=== PATIENT | female | born 1990 | race Caucasian/White ===

== ENCOUNTER 2018-10-20 13:10 | Emergency (ER) | payer OTHER ==
--- OUTSIDE RECORDS SUMMARY | 2018-10-20 13:13 | XMS REPORT | Clinical Summary ---
:1990 Author Organization [facility] Address [address] [place] [address] Care Team Providers Name Role Phone Jeyson Red MD Primary Care Provider Allergies Active Allergy Reactions Severity Noted Date Comments Tramadol Other (See Comments) 05/21/2017 Medications Medication Sig Dispensed Refills Start Date End Date Status ondansetron ODT Take 1 tablet 30 tablet 1 10/01/2018 Active (ZOFRAN-ODT) 8 MG (8 mg total) 8 disintegrating by mouth every tablet 8 (eight) hours as needed for nausea or vomiting for up to 30 days. norgestimate-ethinyl Take 1 tablet 84 tablet 3 05/26/2017 Discontinued estradiol (ORTHO by mouth 8 TRI-CYCLEN LO, 28,) daily. 0.18/0.215/0.25 mg-25 mcg per tablet Active Problems Problem Noted Date ASCUS with positive high risk HPV cervical 10/16/2018 Overview: Repeat Pap Spontaneous rupture of tendon of right foot 08/02/2016 Ganglion cyst of right foot 08/02/2016 Encounters Date Type Specialty Care Team Description 10/20/2018 Telephone Hue Francois MD 10/06/2018 Telephone Hue Francois MD 10/02/2018 Ancillary Procedure Hue Francois test Riaz Neumann MD positive 10/01/2018 Office Visit Hue Francois test Riaz Neumann MD positive (Primary Dx) 10/01/2018 Orders Only Hue Francois MD 09/21/2018 Telephone Hue Francois MD after 10/19/2017 Family History Medical History Relation Name Comments No Known Problems Father No Known Problems Mother Relation Name Status Comments Father Mother Social History Tobacco Use Types Packs/Day Years Used Date Never Smoker Alcohol Use Drinks/Week oz/Week Comments Yes 1-2 Standard drinks or equivalent 0.6 - 1.2 Sex Assigned at Date Recorded Not on file Job Start Date Occupation Industry Not on file Not on file Not on file Travel History Travel Start Travel End No recent travel history available. Last Filed Vital Signs Vital Sign Reading Time Taken Blood Pressure 116/72 10/01/2018 3:07 PM BAGGAGE CHECKER Pulse 69 10/01/2018 3:07 PM BAGGAGE CHECKER Temperature - - Respiratory Rate - - Oxygen Saturation - - Inhaled Oxygen Concentration - - Weight 61.2 kg (135 lb) 10/01/2018 3:07 PM BAGGAGE CHECKER Height 167.6 cm (5' 6") 10/01/2018 3:07 PM BAGGAGE CHECKER Body Mass Index 21.79 10/01/2018 3:07 PM BAGGAGE CHECKER Plan of Treatment Date Type Specialty Care Team Description 10/29/2018 Routine Obstetrics and Hue Flores MD Gynecology [address] [facility] [address] [place] [id number] Health Maintenance Due Date Last Done Comments CERVICAL CANCER SCREENING 2012 INFLUENZA VACCINE 06/17/2018 HEPATITIS B VACCINES Aged Out No longer eligible based on patient's age to complete this topic IPV VACCINES Aged Out No longer eligible based on patient's age to complete this topic MENINGOCOCCAL VACCINE Aged Out No longer eligible based on patient's age to complete this topic Procedures Procedure Name Priority Date/Time Associated Comments Diagnosis US Routine 10/02/2018 8:44 test Results for this TRANSVAGINAL AM BAGGAGE CHECKER positive procedure are in the results section. MICROSCOPIC EXAMINATION Routine 10/01/2018 4:16 Results for this PM BAGGAGE CHECKER procedure are in the results section. URINALYSIS, COMPLETE, Routine 10/01/2018 4:16 Results for this WITH REFLEX TO CULTURE PM BAGGAGE CHECKER procedure are in the results section. OBSTETRIC PANEL Routine 10/01/2018 4:16 Results for this PM BAGGAGE CHECKER procedure are in the results section. GYNECOLOGIC PAP TEST Routine 10/01/2018 3:31 test Results for this (IMAGE-GUIDED), PM BAGGAGE CHECKER positive procedure are in LIQUID-BASED the results PREPARATION AND CHL section. HUMAN PAPILLOMAVIRUS Routine 10/01/2018 3:31 Results for this (HPV) (APTIMA) PM BAGGAGE CHECKER procedure are in the results section. after 10/19/2017 Results US Transvaginal (10/02/2018 8:44 AM BAGGAGE CHECKER) Narrative Performed At [facility]-- GA:[id number]:05/24/2019 RADIANT AUA--GA:[id number]:05/25/2019 CRL:4.22mmCardiac Rate:102 bpmNote lo FHR follow up. NT:none Nasal Bone seen:Not Performed Adnexal Structure:Lt follicle 14 mm x 12mm x 11mm. JM Performing Organization Address City/State/Zipcode Phone Number [facility] [address] [place] [address] Obstetric panel (10/01/2018 4:16 PM BAGGAGE CHECKER) Hepatitis B surface Ag Negative Negative [facility] RPR Non Reactive Non Reactive [facility] Rubella IgG antibody <0.90 (L) Immune >0.99 index [facility] Comment: Non-immune <0.90 Equivocal 0.90 - 0.99 Immune >0.99 ABO grouping A [facility] Rh type Positive [facility] Comment: Please note: Prior records for this patient's ABO / Rh type are not available for additional verification. Antibody screen Negative Negative [facility] HIV AG/AB 4th gen Non Reactive Non Reactive [facility] WBC 11.0 (H) 3.4 - 10.8 x10E3/uL [facility] RBC 4.48 3.77 - 5.28 x10E6/uL [facility] HGB 13.9 11.1 - 15.9 g/dL [facility] HCT 40.8 34.0 - 46.6 % [facility] MCV 91 79 - 97 fL [facility] MCH 31.0 26.6 - 33.0 pg [facility] MCHC 34.1 31.5 - 35.7 g/dL [facility] RDW 12.9 12.3 - 15.4 % [facility] Platelet count 266 150 - 379 x10E3/uL [facility] Neutrophils 69 Not Estab. % [facility] Lymphocytes 23 Not Estab. % [facility] Monocytes 7 Not Estab. % [facility] Eosinophils 1 Not Estab. % [facility] Basophils 0 Not Estab. % [facility] Neutrophils, absolute 7.5 (H) 1.4 - 7.0 x10E3/uL [facility] Lymphocytes, absolute 2.6 0.7 - 3.1 x10E3/uL [facility] Monocytes, absolute 0.8 0.1 - 0.9 x10E3/uL [facility] Eosinophils, absolute 0.1 0.0 - 0.4 x10E3/uL [facility] Basophils, absolute 0.0 0.0 - 0.2 x10E3/uL [facility] Immature granulocytes 0 Not Estab. % [facility] Immature grans (abs) 0.0 0.0 - 0.1 x10E3/uL [facility] Narrative Performed At Performed at:[address] [place], [place] [id number] Glassware Maker: Wilmer Falk MD, Phone:[phone] Performing Organization Address [facility] Phone Number [facility] URINALYSIS, COMPLETE, WITH REFLEX TO CULTURE (10/01/2018 4:16 PM BAGGAGE CHECKER) Specific gravity, urine 1.010 1.005 - 1.030 [facility] pH, urine 6.5 5.0 - 7.5 [facility] Color, UA Yellow Yellow [facility] Appearance Clear Clear [facility] WBC esterase, urine Negative Negative [facility] Protein, UA Negative Negative/Trace [facility] Glucose, urine Negative Negative [facility] Ketones, UA Negative Negative [facility] Occult blood, urine Negative Negative [facility] Bilirubin, UA Negative Negative [facility] Urobilinogen, UA 0.2 0.2 - 1.0 mg/dL [facility] Nitrite, UA Negative Negative [facility] Microscopic examination CommentComment: Microscopic [facility] follows if indicated. Microscopic examination See below:Comment: Microscopic [facility] was indicated and was performed. Urinalysis reflex CommentComment: This specimen [facility] will not reflex to a Urine Culture. Narrative Performed At Performed at:[address] [place], [place] [id number] Glassware Maker: Wilmer Falk MD, Phone:[phone] Performing Organization Address [facility]/Zipcode Phone Number [facility] Microscopic Examination (10/01/2018 4:16 PM BAGGAGE CHECKER) WBC, UA None seen 0 - 5 /hpf [facility] RBC, UA 0-2 0 - 2 /hpf [facility] Epithelial cells (non renal) 0-10 0 - 10 /hpf [facility] Mucus, UA Present Not Estab. [facility] Bacteria, UA Few None seen/Few [facility] Narrative Performed At Performed at:01 - [facility] [place] [address] [place], [id number] Glassware Maker: Wilmer Falk MD, Phone:[phone] Performing Organization Address City/[facility] Phone Number [facility] Human Papillomavirus (HPV) (Aptima) (10/01/2018 3:31 PM BAGGAGE CHECKER) HPV Aptima Positive (A) Negative [facility] 02 Comment: This test detects fourteen high-risk HPV types (16/18/31/33/35/39/45/ 51/52/56/58/59/66/68) without differentiation. Narrative Performed At Performed at: - [facility] [address] [facility], [id number] Glassware Maker: Ciera Lopez MD, Phone:[phone] Performing Organization Address City/[facility] 02 Gynecologic Pap Test (Image-guided), Liquid-based Preparation and Chlamydia/ Gonococcus, ODETTE With Reflex to Human Papillomavirus (HPV) (Aptima) When ASC-U (10/01/2018 3:31 PM BAGGAGE CHECKER) Diagnosis Comment (A) [facility] Comment: EPITHELIAL CELL ABNORMALITY. ATYPICAL SQUAMOUS CELLS OF UNDETERMINED SIGNIFICANCE. Specimen adequacy Comment [facility] Comment: Satisfactory for evaluation.Endocervical and/or squamous metaplastic cells (endocervical component) are present. Clinician provided ICD10 CommentComment: Z32.01 [facility] Performed by: CommentComment: Jd Gabriel, [facility] Voting Machine Repairer (ASCP) Electronically signed by: CommentComment: Misty Flores [facility] Linares MD, Pathologist Comment . [facility] Pathologist provided ICD10 CommentComment: R87.610 [facility] Note: Comment [facility] Comment: The Pap smear is a screening test designed to aid in the detection of premalignant and malignant conditions of the uterine cervix.It is not a diagnostic procedure and should not be used as the sole means of detecting cervical cancer.Both false-positive and false-negative reports do occur. Test methodology CANCELED [facility] Comment: The Thin Prep(R) Loan Supervisor was unable to read this specimen.Therefore a manual review was performed. Result canceled by the ancillary. Reflex CommentComment: See below for [facility] HPV testing results. Chlamydia, nucleic acid amp Negative Negative [facility] 02 Gonococcus by nucleic acid amp Negative Negative [facility] 02 Specimen Swab Narrative Performed At Performed at: - [facility] [address] [place], [id number] Glassware Maker: Ciera Lopez MD, Phone:[phone] Performed at: - [facility] [address] [place], [id number] Glassware Maker: Ciera Lopez MD, Phone:[phone] Specimen Comment: No. of containers..01 ThinPrep Vial Performing Organization Address City/State/Zipcode Phone Number [facility] 02 after 10/19/2017 Insurance Payer Benefit Plan / Group Subscriber ID Type Phone Address HUMANA HUMANA HMO/POS/EPO/OPEN ACCESS xxxxxxxxx HMO Advance Directives Patient has advance care planning documents on file. For more information, please contact:Par[address] [address]
[2018-10-20] MEDS ORDERED: METOCLOPRAMIDE 10 MG/2mL INJ ONE (15:05)
[2018-10-20] MEDS ORDERED: NA CHLORIDE 0.9% 1,000 ML ONE (15:06)
[2018-10-20] MEDS ORDERED: DIPHENHYDRAMINE 50 MG/ML VIAL ONE (15:06)
[2018-10-20 15:09] LABS: Absolute Lymphocytes (CBC) 2.1 K/uL (0.7-4.9); Absolute Monocytes 0.7 K/uL (0.1-1.3); Basophils % 0.4 % (0-1.3); Eosinophils % 0.3 % (0-4.4); Hematocrit 43.6 % (36.0-45.0); Lymphocytes % 14.8 % (15.3-44.8); MCH 31.2 pg (27.0-35.0); MCV 90.4 fL (80-100); MPV 9.3 fL (7.6-11.3); Monocytes % 4.9 % (3.3-12.3); RBC Red Blood Cell Count 4.82 M/uL (3.86-4.86)
[2018-10-20 15:17] LABS: BUN Blood Urea Nitrogen 5 mg/dL (7-18); Bicarbonate 27 mmol/L (21-32); Glucose Level 81 mg/dL (74-106); Potassium 4.1 mmol/L (3.5-5.1); Sodium Level 138 mmol/L (136-145)
[2018-10-20 15:55] LABS: Urine Blood NEGATIVE (NEG); Urine Glucose NEGATIVE (NEG); Urine Protein NEGATIVE (NEG); Urine pH 8.5 (5.0-7.0)
[2018-10-20 16:39] LABS: Platelet Estimate ADEQ; Urine White Blood Cell Casts OK
[2018-10-20 16:40] LABS: Blood Morphology Comment NOT SEEN (NOT SEEN)
--- NOTE | 2018-10-20 16:52 | EDPHYS ---
Physician Documentation [facility] Name: Joanie Ochoa Age: 28 yrs Sex: Female : 1990 Arrival Date: 10/20/2018 Time: 13:16 Bed 19 Private MD: out of town, doctor ED Physician Howard Rodriguez HPI: 10/20 17:01 This 28 yrs old Female presents to ER via Ambulatory with complaints of 9 wks jr8 , Dizziness, Headache. 17:01 Patient stated that she is 9 weeks . Has been having dizziness today along with jr8 headache. Has also been constipated due to and zofran use. Denies abdominal pain, vaginal bleeding, or discharge. Severity of symptoms: At their worst the symptoms were mild in the emergency department the symptoms are unchanged. The patient has not experienced similar symptoms in the past. The patient has not recently seen a physician. DISPATCHER MAINTENANCE: 17:31 Verified bp Historical: - Allergies: 13:29 tramadol; sv - Home Meds: 13:29 None [Active]; sv - PMHx: 13:29 None; sv - PSHx: 13:29 right great toe tendon repair; sv - Immunization history:: Flu vaccine is up to date. - Social history:: Smoking status: Patient/guardian denies using tobacco. - Ebola Screening: : No symptoms or risks identified at this time. ROS: 17:01 Eyes: Negative for injury, pain, redness, and discharge, ENT: Negative for injury, jr8 pain, and discharge, Neck: Negative for injury, pain, and swelling, Cardiovascular: Negative for chest pain, palpitations, and edema, Respiratory: Negative for shortness of breath, cough, wheezing, and pleuritic chest pain, Abdomen/GI: Negative for abdominal pain, nausea, vomiting, or diarrhea. Positive for constipation Back: Negative for injury and pain, MS/Extremity: Negative for injury and deformity, Skin: Negative for injury, rash, and discoloration. 17:01 Neuro: Positive for dizziness, headache. Exam: 17:01 Eyes: Pupils equal round and reactive to light, extra-ocular motions intact. Lids and jr8 lashes normal. Conjunctiva and sclera are non-icteric and not injected. Cornea within normal limits. Periorbital areas with no swelling, redness, or edema. ENT: Nares patent. No nasal discharge, no septal abnormalities noted. Tympanic membranes are normal and external auditory canals are clear. Oropharynx with no redness, swelling, or masses, exudates, or evidence of obstruction, uvula midline. Mucous membranes moist. Neck: Trachea midline, no thyromegaly or masses palpated, and no cervical lymphadenopathy. Supple, full range of motion without nuchal rigidity, or vertebral point tenderness. No Meningismus. Cardiovascular: Regular rate and rhythm with a normal S1 and S2. No gallops, murmurs, or rubs. Normal PMI, no JVD. No pulse deficits. Respiratory: Lungs have equal breath sounds bilaterally, clear to auscultation and percussion. No rales, rhonchi or wheezes noted. No increased work of breathing, no retractions or nasal flaring. Abdomen/GI: Soft, non-tender, with normal bowel sounds. No distension or tympany. No guarding or rebound. No evidence of tenderness throughout. Back: No spinal tenderness. No costovertebral tenderness. Full range of motion. Skin: Warm, dry with normal turgor. Normal color with no rashes, no lesions, and no evidence of cellulitis. MS/ Extremity: Pulses equal, no cyanosis. Neurovascular intact. Full, normal range of motion. Neuro: Awake and alert, GCS 15, oriented to person, place, time, and situation. Cranial nerves II-XII grossly intact. Motor strength 5/5 in all extremities. Sensory grossly intact. Cerebellar exam normal. Normal gait. Vital Signs: 13:29 BP 124 / 74; Pulse 60; Resp 16; Temp 97.7; Pulse Ox 99% ; Weight 58.97 kg; Height 5 ft. sv 6 in. (167.64 cm); Pain 3/10; 15:08 BP 127 / 78; Pulse 79; Resp 17; Pulse Ox 100% on R/A; mh5 17:00 BP 119 / 65; Pulse 65; Resp 16; Pulse Ox 100% ; bp 13:29 Body Mass Index 20.98 (58.97 kg, 167.64 cm) sv MDM: 14:22 Patient medically screened. [facility] 16:51 Data reviewed: vital signs, nurses notes, lab test result(s), and as a result, I will [facility] discharge patient. Data interpreted: Pulse oximetry: on room air is 100 %. Interpretation: normal. Counseling: I had a detailed discussion with the patient and/or guardian regarding: the historical points, exam findings, and any diagnostic results supporting the discharge/admit diagnosis, lab results, the need for outpatient follow up, a family practitioner, an OB/Gyne specialist, to return to the emergency department if symptoms worsen or persist or if there are any questions or concerns that arise at home. Response to treatment: the patient's symptoms have resolved after treatment, patient is well hydrated. 17:01 ED course: Patient markedly better. Told her to D/C zofran and start reglan. Colace jr8 daily and continue to hydrate. F/U with PCP. Patient good with this plan . 10/20 14:29 Order name: CBC with Diff; Complete Time: 16:51 jr8 10/20 14:29 Order name: Basic Metabolic Panel; Complete Time: 15:48 jr8 10/20 14:54 Order name: Urine Dipstick--Ancillary (enter results); Complete Time: 16:04 eb 10/20 14:54 Order name: Urine --Ancillary (enter results) eb 10/20 15:13 Order name: CBC Smear Scan; Complete Time: 16:51 EDMS 10/20 14:29 Order name: Urine Test (obtain specimen); Complete Time: 14:51 jr8 10/20 14:29 Order name: Urine Dipstick-Ancillary (obtain specimen); Complete Time: 14:51 jr8 10/20 14:29 Order name: IV; Complete Time: 14:51 jr8 Administered Medications: 14:50 Drug: NS 0.9% 1000 ml Route: IV; Rate: 1000 ml; Site: right wrist; bp 16:00 Follow up: IV Status: Completed infusion; IV Intake: 1000ml bp 14:50 Drug: Reglan 10 mg Route: IVP; Site: right wrist; bp 17:28 Follow up: Response: Marked relief of symptoms bp 14:50 Drug: Benadryl 12.5 mg Route: IVP; Site: right wrist; bp 17:28 Follow up: Response: Marked relief of symptoms bp Disposition: 10/20/18 16:52 Discharged to Home. Impression: Migraine, Dehydration. - Condition is Stable. - Discharge Instructions: Migraine Headache. - Prescriptions for Reglan 10 mg Oral Tablet - take 1 tablet by ORAL route every 6 hours As needed take 30 minutes before meals and at bedtime; 30 tablet. - Work release form, Medication Reconciliation Form, Thank You Letter, Antibiotic Education, Prescription Opioid Use form. - Follow up: Private Physician; When: 2 - 3 days; Reason: Recheck today's complaints, Continuance of care, Re-evaluation by your physician. - Problem is new. - Symptoms have improved. Addendum: 10/22/2018 06:30 Co-signature as Attending Physician, Howard Rodriguez MD I agree with the assessment and c keene plan of care. Signatures: Dispatcher [employer] EDMckenzie Riley, RN RN Howard Crenshaw MD MD cha Roszak, Josh, PA PA jr8 Robi Chávez RN RN bp Corrections: (The following items were deleted from the chart) 10/20 17:32 16:52 10/20/2018 16:52 Discharged to Home. Impression: Migraine; Dehydration. Condition bp is Stable. Forms are Medication Reconciliation Form, Thank You Letter, Antibiotic Education, Prescription Opioid Use. Follow up: Private Physician; When: 2 - 3 days; Reason: Recheck today's complaints, Continuance of care, Re-evaluation by your physician. Problem is new. Symptoms have improved. jr8
--- NOTE | 2018-10-20 16:52 | ER ---
Nurse's Notes [facility] Name: Joanie Ochoa Age: 28 yrs Sex: Female : 1990 Arrival Date: 10/20/2018 Time: 13:16 Bed 19 Private MD: out of town, doctor Diagnosis: Migraine;Dehydration Presentation: 10/20 13:28 Presenting complaint: Patient states: dizziness, occipital headache started today. c/o sv n/v/constipation/black spots in vision. Pt is 9 weeks . Transition of care: patient was not received from another setting of care. Onset of symptoms was October 20, 2018. Care prior to arrival: None. 13:28 Method Of Arrival: Ambulatory sv 13:28 Acuity: JEANETTE 3 sv 14:30 Risk Assessment: Do you want to hurt yourself or someone else? Patient reports no bp desire to harm self or others. Initial Sepsis Screen: Does the patient meet any 2 criteria? No. Patient's initial sepsis screen is negative. Does the patient have a suspected source of infection? No. Patient's initial sepsis screen is negative. Triage Assessment: 14:30 Pain: Pain currently is 8 out of 10 on a pain scale. Pain began suddenly, Also bp complains of nausea. 14:30 Headache History: The patient has had previous headaches and this one is similar to bp previous episodes. General: Appears in no apparent distress. uncomfortable, slender, Behavior is cooperative, appropriate for age, anxious. SOAKING PITS SUPERVISOR: 17:31 Verified bp Historical: - Allergies: 13:29 tramadol; sv - Home Meds: 13:29 None [Active]; sv - PMHx: 13:29 None; sv - PSHx: 13:29 right great toe tendon repair; sv - Immunization history:: Flu vaccine is up to date. - Social history:: Smoking status: Patient/guardian denies using tobacco. - Ebola Screening: : No symptoms or risks identified at this time. Screenin:55 Abuse screen: Denies threats or abuse. Denies injuries from another. Nutritional bp screening: No deficits noted. Tuberculosis screening: No symptoms or risk factors identified. Fall Risk None identified. Assessment: 13:30 General: Appears in no apparent distress. comfortable, Behavior is cooperative, bp appropriate for age, anxious. Pain: Complains of pain in head. Neuro: Level of Consciousness is awake, alert, obeys commands, Oriented to person, place, time, situation, Appropriate for age. Cardiovascular: No deficits noted. Respiratory: Airway is patent Respiratory effort is even, unlabored, Respiratory pattern is regular, symmetrical. GI: No signs and/or symptoms were reported involving the gastrointestinal system. : No signs and/or symptoms were reported regarding the genitourinary system. EENT: No deficits noted. Derm: No deficits noted. Musculoskeletal: Circulation, motion, and sensation intact. Range of motion: intact in all extremities. 15:30 Reassessment: RESTING QUIETLY, VS STABLE, IVF INFUSING. bp 17:29 Reassessment: PT D/C HOME AMBULATORY, DX WITH MIGRAINE AND DEHYDRATION. bp Vital Signs: 13:29 BP 124 / 74; Pulse 60; Resp 16; Temp 97.7; Pulse Ox 99% ; Weight 58.97 kg; Height 5 ft. sv 6 in. (167.64 cm); Pain 3/10; 15:08 BP 127 / 78; Pulse 79; Resp 17; Pulse Ox 100% on R/A; mh5 17:00 BP 119 / 65; Pulse 65; Resp 16; Pulse Ox 100% ; bp 13:29 Body Mass Index 20.98 (58.97 kg, 167.64 cm) sv ED Course: 13:16 Patient arrived in ED. mr 13:16 out of town, doctor is Private Physician. mr 13:29 Triage completed. sv 13:29 Arm band placed on. sv 13:54 Robi Chávez, RN is Primary Nurse. bp 13:55 Patient has correct armband on for positive identification. Bed in low position. Call bp light in reach. Side rails up X2. 14:22 Marcelo Cedeño PA is PHCP. jr8 14:22 Howard Rodriguez MD is Attending Physician. jr8 14:50 Inserted saline lock: 22 gauge in right wrist, using aseptic technique. Blood collected.bp 17:06 IV discontinued, intact, bleeding controlled, No redness/swelling at site. Pressure gm dressing applied. 17:15 IV discontinued, intact, bleeding controlled, No redness/swelling at site. Pressure bp dressing applied. 17:29 No provider procedures requiring assistance completed. bp Administered Medications: 14:50 Drug: NS 0.9% 1000 ml Route: IV; Rate: 1000 ml; Site: right wrist; bp 16:00 Follow up: IV Status: Completed infusion; IV Intake: 1000ml bp 14:50 Drug: Reglan 10 mg Route: IVP; Site: right wrist; bp 17:28 Follow up: Response: Marked relief of symptoms bp 14:50 Drug: Benadryl 12.5 mg Route: IVP; Site: right wrist; bp 17:28 Follow up: Response: Marked relief of symptoms bp Intake: 16:00 IV: 1000ml; Total: 1000ml. bp Outcome: 16:52 Discharge ordered by . lorene 17:29 Discharged to home ambulatory, with family. bp 17:29 Condition: stable 17:29 Discharge instructions given to patient, Instructed on discharge instructions, follow up and referral plans. medication usage, Demonstrated understanding of instructions, follow-up care, medications, Prescriptions given X 1. 17:32 Patient left the ED. bp Signatures: Mckenzie Thapa RN RN RamosFloresita mello mr Marcelo Cedeño PA PA jr8 Martinez, Maria [facility] Robi Chávez RN RN bp Tyra Sibley gm Corrections: (The following items were deleted from the chart) 13:30 13:28 Presenting complaint: Patient states: dizziness, occipital headache started sv today. c/o n/v/constipation. Pt is 9 weeks . sv
== END 2018-10-20 17:32 | disposition home or self-care (01) ==
LOC: ER 13:10
DX: G43.909 Migraine, unspecified, not intractable, without status migrainosus (principal); E86.0 Dehydration; Z33.1 Pregnant state, incidental
CPT/HCPCS: 36415; 80048; 81003; 81025; 85025; 96361; 96374; 96375; 99284; J2765; J7030